=== PATIENT | female | born 1985 | race Caucasian/White ===

== ENCOUNTER 2016-08-10 11:10 | Outpatient (CLI) | payer OTHER ==
--- NOTE | 2016-08-10 12:19 | DIAGNOSTIC IMAGING REPORT ---
PROCEDURE: US COMPLETE PELVIC W/TRANSVAG INDICATION: PELVIC PAIN TECHNIQUE: Transabdominal and endovaginal samuels scale and color Doppler sonographic images of the female pelvis were obtained. COMPARISON: None. FINDINGS: TRANSABDOMINAL SCANS: The uterus is of normal size 11 x 5.7 x 7.5 cm. Kidneys are normal. TRANSVAGINAL SCANS: The uterus is anteverted. Myometrium is normal. The endometrium measures 12.2 mm. Right ovary is measuring 3.9 x 2.4 x 2.4 cm. There is 1.8 cm cyst on the right ovary. There is a 2.5 cm cyst on the left ovary. The left ovary is measuring 3.9 x 2.6 x 2.3 cm There is a trace of fluid in the cervix. IMPRESSION: 1. Bilateral ovarian follicular cysts, 1.8 cm on the right and 2.5 cm on the left.
== END 2016-08-10 23:00 ==
LOC: US SRH 11:10
DX: N83.202 Unspecified ovarian cyst, left side (principal); N83.201 Unspecified ovarian cyst, right side